=== PATIENT | male | born 2000 | race Two or more races ===

== ENCOUNTER 2020-08-15 08:50 | Emergency (ER) | payer OTHER ==
[~2020-08-15] VITALS: Ht 182.9 cm; Wt 77.1 kg
== END 2020-08-15 10:33 | disposition home or self-care (01) ==
LOC: ER 08:50 → EMR PED 08:50
DX: U07.1 COVID-19 (principal); J06.9 Acute upper respiratory infection, unspecified

== ENCOUNTER 2020-09-18 11:52 | Emergency (ER) | payer OTHER ==
[~2020-09-18] VITALS: Ht 182.9 cm; Wt 79.4 kg
[2020-09-18] MEDS ORDERED: ACETAMINOPHEN500 M2 PO (15:57)
== END 2020-09-18 16:13 | disposition home or self-care (01) ==
LOC: EMR PED 11:52 → ER 11:56 → EMR PED 16:13
DX: S93.401A Sprain of unspecified ligament of right ankle, initial encounter (principal); X50.0XXA Overexertion from strenuous movement or load, initial encounter; Y93.89 Activity, other specified; Y92.69 Other specified industrial and construction area as the place of occurrence of the external cause; Y99.8 Other external cause status

== ENCOUNTER 2020-11-04 08:50 | Emergency (ER) | payer OTHER ==
[~2020-11-04] VITALS: Ht 182.9 cm; Wt 68.0 kg
[~2020-11-04 08:50] MED LIST: ACETAMINOPHEN500 M2 PO
== END 2020-11-04 11:37 | disposition home or self-care (01) ==
LOC: ER 08:50 → EMR PED 08:50 → ER 09:58
DX: U07.1 COVID-19 (principal)

== ENCOUNTER 2021-12-26 00:10 | Emergency (ER) | payer OTHER ==
[~2021-12-26] VITALS: Ht 182.9 cm; Wt 77.1 kg
[2021-12-26] MEDS ORDERED: KETO10TA2 PO (00:36)
[2021-12-26] MEDS ORDERED: NORFLEX100MG PO (00:36)
== END 2021-12-26 01:24 | disposition home or self-care (01) ==
LOC: ER 00:10
DX: M54.50 Low back pain, unspecified (principal)

== ENCOUNTER 2022-06-29 18:24 | Emergency (ER) | payer OTHER ==
[~2022-06-29] VITALS: Ht 182.9 cm; Wt 90.7 kg
[~2022-06-29 18:24] MED LIST changes: +KETO10TA2 PO; +NORFLEX100MG PO
[2022-06-30] MEDS ORDERED: CEPHALEXIN500 MG PO (03:02)
[2022-06-30] MEDS ORDERED: PYRIDIUM DS200 MG PO (03:02)
== END 2022-06-30 03:07 ==
LOC: ER 18:24
DX: R30.0 Dysuria (principal); R10.9 Unspecified abdominal pain

== ENCOUNTER → 2022-08-24 | Emergency (ER) | payer OTHER ==
[~2022-08-24] VITALS: Ht 182.9 cm; Wt 90.7 kg
[~2022-08-24] MED LIST changes: +CEPHALEXIN500 MG PO; +PYRIDIUM DS200 MG PO
== END | disposition left against medical advice (07) ==
LOC: ER 23:32
DX: Z53.21 Procedure and treatment not carried out due to patient leaving prior to being seen by health care provider (principal)

== ENCOUNTER 2023-03-28 12:23 | Emergency (ER) | payer OTHER ==
[~2023-03-28] VITALS: Ht 182.9 cm; Wt 92.1 kg
[2023-03-28 14:09] LABS: HEMATOCRIT 44.1 % (39.0-48.0); HEMOGLOBIN 14.9 g/dL (13-16.00); MEAN CELL VOLUME 84.4 fL (80.0-100.00); MEAN CORPUSCULAR HEMOGLOBIN 28.5 pg (27.00-32.0); MEAN CORPUSCULAR HGB CONC 33.7 g/dl (32.0-36.0); PLATELET COUNT 300 K/uL (150-450); RED BLOOD COUNT 5.22 M/uL (4.00-6.00); RED CELL DISTRIBUTION WIDTH 13.4 % (11.5-14.5)
[2023-03-28 14:10] LABS: PH,URINE 7.5 (5.0-8.0); URINE APPEARANCE Clear; URINE BILIRRUBIN Negative (NEGATIVE); URINE BLOOD Negative; URINE COLOR Yellow; URINE GLUCOSE Negative (NEGATIVE); URINE LEUKOCYTE Trace; URINE NITRATE Negative; URINE PROTEIN Negative (NEGATIVE)
[2023-03-28 14:13] LABS: URINE BACTERIA 6.2 uL (0.0-1933); URINE RBC 8.9 uL (0.0-20.8)
[2023-03-28 14:42] LABS: CALCIUM 9.1 mg/dL (8.5-10.1); CREATININE SERUM 1.01 mg/dL (0.70-1.30); GFR 92.37; POTASSIUM 3.85 mEq/L (3.5-5.1)
[2023-03-28 14:52] LABS: URINE EPITHELIAL CELLS 0.9 uL (0.0-38.8)
== END 2023-03-28 18:28 | disposition home or self-care (01) ==
LOC: ER 12:24
PROVIDERS: Emergency Medicine
DX: R10.2 Pelvic and perineal pain (principal); R10.9 Unspecified abdominal pain